=== PATIENT | female | born 1945 | race Two or more races ===

== ENCOUNTER 2023-06-09 20:34 | Emergency (ER) | payer OTHER ==
[~2023-06-09] VITALS: Ht 152.4 cm; Wt 61.2 kg
[2023-06-09] MEDS ORDERED: ATACAND4 MG (20:39)
[2023-06-09] MEDS ORDERED: CRESTOR5 MG PO (20:39)
[2023-06-09] MEDS ORDERED: ORPHENADRINE CITRATE 30 MG/ML AMPUL IM ONE (21:45)
[2023-06-09] MEDS ORDERED: KETOROLAC TROMETHAMINE 30 MG VIAL IM ONE (21:45)
== END 2023-06-10 00:14 | disposition home or self-care (01) ==
LOC: ER 20:34
DX: M25.519 Pain in unspecified shoulder (principal); M54.9 Dorsalgia, unspecified; I10 Essential (primary) hypertension